=== PATIENT | male | born 1980 | race African-American/Black ===

== ENCOUNTER 2019-09-07 13:44 | Emergency (ER) | payer MEDICAID, OTHER ==
[~2019-09-07] VITALS: Ht 172.7 cm; Wt 90.0 kg
[~2019-09-07 13:44] MED LIST: HYDR-1348
[2019-09-07] MEDS ORDERED: ACETAMINOPHEN 325MG TABLET PO STA (14:42)
[2019-09-07] MEDS ORDERED: SULFAMETHOXAZOLE/TRIMETHOPRIM 800/160MG TABLET PO ONE (16:00)
[2019-09-07] MEDS ORDERED: AMOXICILLIN/POTASSIUM CLAVULANATE 875/125MG TAB PO ONE (16:00)
[2019-09-07] MEDS ORDERED: TETANUS, DIPHTHERIA, PERTUSSIS VAC/PF 0.5ML (>7YR OLD) IM ONE (16:00)
[2019-09-07 17:29] VITALS: BP 126/68
== END 2019-09-07 17:31 | disposition home or self-care (01) ==
LOC: ER 13:44
DX: L03.115 Cellulitis of right lower limb (principal); M79.604 Pain in right leg; Z86.718 Personal history of other venous thrombosis and embolism
CPT/HCPCS: 90471; 90715; 93971; 99284

== ENCOUNTER 2021-09-15 06:55 | Emergency (ER) | payer MEDICAID, OTHER ==
[~2021-09-15] VITALS: Ht 182.9 cm; Wt 82.0 kg
[2021-09-15] MEDS ORDERED: FLUORESCEIN SODIUM 1MG/STRIP BOTHEYE ONE (07:45)
[2021-09-15] MEDS ORDERED: TETRACAINE 0.5% OPHTH DROPS 4ML BOTHEYE ONE (07:45)
[2021-09-15] MEDS ORDERED: HYDROCODONE/ACETAMINOPHEN 5/325MG TABLET PO ONE (08:45)
[2021-09-15] MEDS ORDERED: TETANUS, DIPHTHERIA, PERTUSSIS VAC/PF 0.5ML (>10YR OLD) IM ONE (11:30)
[2021-09-15] MEDS ORDERED: AMPICILLIN SOD/SULBACTAM NA 3 G in SODIUM CHLORIDE 0.9% 100 ML IV SCH (14:00)
[2021-09-15 22:06] VITALS: BP 132/87
== END 2021-09-15 22:40 | disposition short-term general hospital (02) ==
LOC: ER 06:55
DX: S02.31XA Fracture of orbital floor, right side, initial encounter for closed fracture (principal); S02.2XXA Fracture of nasal bones, initial encounter for closed fracture; S03.2XXA Dislocation of tooth, initial encounter; F12.10 Cannabis abuse, uncomplicated; Z86.718 Personal history of other venous thrombosis and embolism; Z20.822 Contact with and (suspected) exposure to COVID-19; Y04.0XXA Assault by unarmed brawl or fight, initial encounter; Y93.89 Activity, other specified; Y92.488 Other paved roadways as the place of occurrence of the external cause
CPT/HCPCS: 70450; 70486; 87426; 90471; 90715; 96365; 99285; J0295; J7050

== ENCOUNTER 2024-11-26 14:27 | Emergency (ER) | payer MEDICAID, OTHER ==
[~2024-11-26] VITALS: Ht 180.3 cm; Wt 96.0 kg
[2024-11-26 14:38] VITALS: O2SAT 97
[2024-11-26] MEDS: LIDOCAINE HCL/EPINEPHRINE 1%-EPI 1:100,000 10ML VIAL INFIL ONE (15:00)
[2024-11-26 15:40] LABS: BASOPHILS % 0.3 % (0.0-2.0); EOSINOPHILS % 3.6 % (0.0-5.0); HEMATOCRIT. 34.9 % (42.0-52.0); HEMOGLOBIN. 11.4 g/dL (14.0-18.0); LYMPHOCYTES % 21.4 % (20.0-50.0); MEAN CORPUSCULAR HEMOGLOBIN 26.7 pg (28.0-32.0); MEAN CORPUSCULAR HGB CONC 32.7 g/dL (31.0-37.0); MEAN CORPUSCULAR VOLUME 81.5 fL (80.0-94.0); NEUTROPHILS % 66.7 % (40.0-76.0); PLATELET 323 x1000/uL (130-400); RED BLOOD CELL COUNT 4.28 mill/uL (4.7-6.1)
[2024-11-26 15:47] LABS: CHLORIDE 105 mEq/L (98-107); SODIUM 140 mEq/L (136-145)
[2024-11-26 15:48] LABS: CARBON DIOXIDE 27 mEq/L (21-32)
[2024-11-26 15:53] LABS: CREATININE 1.1 mg/dL (0.6-1.3); GLUCOSE 105 mg/dL (70-105); UREA NITROGEN BLOOD 10 mg/dL (9-23)
[2024-11-26 16:21] LABS: TROPONIN I HIGH SENSITIVITY < 4 ng/L (3.0-53)
[2024-11-26] MEDS: SODIUM CHLORIDE 0.9% 1,000 ML IV ONE (16:27)
[2024-11-26 19:01] VITALS: BP 100/62; PULSE 78; RESP 16; TEMP 36.6; O2SAT 99
== END 2024-11-26 21:00 | disposition home or self-care (01) ==
LOC: ER 14:27
DX: S91.311A Laceration without foreign body, right foot, initial encounter (principal); I83.891 Varicose veins of right lower extremity with other complications; F17.200 Nicotine dependence, unspecified, uncomplicated; F12.10 Cannabis abuse, uncomplicated; F15.10 Other stimulant abuse, uncomplicated; Z59.01 Sheltered homelessness; Z86.718 Personal history of other venous thrombosis and embolism; X58.XXXA Exposure to other specified factors, initial encounter; Y93.89 Activity, other specified; Y92.89 Other specified places as the place of occurrence of the external cause; Y99.8 Other external cause status
CPT/HCPCS: 80048; 83880; 85025; 86850; 86900; 86901; 84484; 36415; 73620; 93970; 96360; 99284; Z7610; A4606